=== PATIENT | female | born 1975 | race Hispanic/Latino ===

== ENCOUNTER 2025-03-29 17:13 | Emergency (ER) | payer OTHER ==
[2025-03-29 17:28] LABS: Absolute Lymphocytes (CBC) 0.7 K/uL (0.7-4.9); Hematocrit 37.4 % (36.0-45.0); Hemoglobin 13.1 g/dL (12.0-15.0); MCH 34.3 pg (27.0-35.0); MCHC 34.9 g/dL (32.0-36.0); MCV 98.1 fL (80-100); MPV 6.9 fL (7.6-11.3); Nucleated RBC Absolute Count 0.0 (0-0); Nucleated Red Blood Cells % 0.0 % (0-0); RBC Red Blood Cell Count 3.81 M/uL (3.86-4.86); White Blood Count 4.60 thou/uL (4.3-10.9)
[2025-03-29 17:49] LABS: Anion Gap 9.0 mEq/L (5.0-15.0); BUN Blood Urea Nitrogen 15.0 mg/dL (7-18); Glucose Level 104.0 mg/dL (74-106); Potassium 3.0 mEq/L (3.5-5.1); Troponin High Sensitivity 4.3 pg/mL (<58.9)
[2025-03-29] MEDS ORDERED: HYDRALAZINE HCL 20 MG/ML VIAL ONE (17:50)
[2025-03-29] MEDS ORDERED: LORazepam 2 MG/ML VIAL ONE (17:50)
[2025-03-29] MEDS ORDERED: NA CHLORIDE 0.9% 1,000 ML ONE (17:50)
--- NOTE | 2025-03-29 18:17 | RAD REPORT ---
EXAM: Chest Single View HISTORY: 49 years Female CHEST PAIN COMPARISON: 06/19/2013 FINDINGS: LUNGS/PLEURA: The lungs are clear. No pleural effusions or pneumothorax. No pulmonary edema. CARDIAC/MEDIASTINUM: The cardiac silhouette is within normal limits. UPPER ABDOMEN: No significant abnormality. BONES: No acute abnormality. LINES/TUBES/OTHER: N/A IMPRESSION: No evidence of acute cardiopulmonary disease.
--- NOTE | 2025-03-29 18:18 | EDPHYS ---
Physician Documentation [facility] Name: Lucero Galeas Age: 49 yrs Sex: Female : 1975 Arrival Date: 03/29/2025 Time: 17:13 Bed 17 Private MD: ED Physician Breezy Ibrahim HPI: 03/29 18:59 This 49 yrs old Female presents to ER via EMS with complaints of Shortness Of dr5 Breath. 18:59 Onset: The symptoms/episode began/occurred acutely. Patient is a 49-year-old female dr5 with history of hypertension coming in for feeling of bugs on her body coming out of her ears as well as chest pressure on left side. [place] when all of her symptoms started. Patient denies suicidal ideation, homicidal ideation, audio or visual hallucinations.. 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 - Infectious Disease History:: Denies. - Social history:: Smoking status: unknown. ROS: 18:59 Constitutional: as per hpi dr5 Exam: 18:59 Constitutional: This is a well developed, well nourished patient who is awake, alert, dr5 and in no acute distress. Head/Face: Normocephalic, atraumatic. Eyes: Pupils equal round and reactive to light, extra-ocular motions intact. Lids and lashes normal. Conjunctiva and sclera are non-icteric and not injected. Cornea within normal limits. Periorbital areas with no swelling, redness, or edema. ENT: Nares patent. No nasal discharge, no septal abnormalities noted. Tympanic membranes are normal and external auditory canals are clear. Oropharynx with no redness, swelling, or masses, exudates, or evidence of obstruction, uvula midline. Mucous membranes moist. Chest/axilla: Normal chest wall appearance and motion. Nontender with no deformity. No lesions are appreciated. Cardiovascular: Regular rate and rhythm with a normal S1 and S2. Normal PMI, no JVD. No pulse deficits. Respiratory: Lungs have equal breath sounds bilaterally, clear to auscultation. No rales, rhonchi or wheezes noted. No increased work of breathing, no retractions or nasal flaring. Back: No spinal tenderness. No costovertebral tenderness. Full range of motion. Skin: Warm, dry with normal turgor. Normal color with no rashes, no lesions, and no evidence of cellulitis. MS/ Extremity: Pulses equal, no cyanosis. Neurovascular intact. Full, normal range of motion. Neuro: Awake and alert, GCS 15, oriented to person, place, time, and situation. Cranial nerves II-XII grossly intact. Motor strength 5/5 in all extremities. Sensory grossly intact. Cerebellar exam normal. Normal gait. 18:59 Chest/axilla: Inspection: normal, 18:59 Skin: Patient states that she knows there are bugs in her ears. On otoscopic exam, no abnormalities noted including bugs in ears.. Vital Signs: 17:37 BP 135 / 118; Pulse 83; Resp 19; Temp 98.4; Pulse Ox 100% on R/A; iw 18:23 BP 134 / 88; Pulse 93; Resp 20; Temp 98; Pulse Ox 100% on R/A; kj2 MDM: 17:17 Medical Screening Exam initiated dr5 18:59 Differential diagnosis: Bronchitis pneumonia, Essential hypertension, NSTEMI, STEMI, dr5 delusional parasitosis. Antibiotic administration: Not indicated, the patient does not have an appreciated infiltrate. Data reviewed: vital signs, nurses notes, lab test result(s), cardiac enzymes, troponin i, CBC, white blood cell count, hemoglobin, hematocrit, platelets, electrolytes, sodium, potassium, chloride, serum bicarbonate, BUN, creatinine, serum glucose, radiologic studies, plain films. Consideration of Admission/Observation Escalation of care including admission/observation considered. Admission considered if patient found to have elevated troponin.. I considered the following discharge prescriptions or medication management in the emergency department I discussed and recommended Over The Counter medications, Medications were administered in the Emergency Department. See MAR. Independent interpretation of the following test(s) in the Emergency Department X-Ray: My interpretation is Independent interpretation of chest x-ray did not reveal infiltrates considered for pneumonia.. Historians other than the Patient: EMS: EMS. Care significantly affected by the following chronic conditions: Hypertension. Care significantly affected by the following Social Determinants of Health: Poor access to healthcare and/or lack of insurance, Poor access to transportation, Problems related to employment. Scoring Tools HEART Score: History: ECG: Age: Risk Factors: Troponin: Total Score = 2. Counseling: I had a detailed discussion with the patient and/or guardian regarding the historical points, exam findings, and any diagnostic results supporting the discharge/admit diagnosis, the presence of at least one elevated blood pressure reading (>120/80) during this emergency department visit, lab results, radiology results, the need for outpatient follow up, for definitive care, a family practitioner, to return to the emergency department if symptoms worsen or persist or if there are any questions or concerns that arise at home. Medication response: Hydralazine, Ativan. Response to treatment: the patient's symptoms have markedly improved after treatment. Special discussion: I discussed with the patient/guardian in detail that at this point there is no indication for admission to the hospital. It is understood, however, that if the symptoms persist or worsen the patient needs to return immediately for re-evaluation. Based on the history and exam findings, there is no indication for further emergent testing or inpatient evaluation. I discussed with the patient/guardian the need to see the primary care provider for further evaluation of the symptoms. ED course: Patient's white pressure has improved. Patient feels better. Will discharge patient back in custody with police. Troponin negative. Chest x-ray normal. Blood pressure has resolved. All questions answered. Strict ER precaution given.. 03/29 17:16 Order name: Basic Metabolic Panel; Complete Time: 17:53 [facility] 03/29 17:16 Order name: CBC with Diff; Complete Time: 17: dr5 03/29 17:16 Order name: Troponin HS; Complete Time: 17:53 [facility] 03/29 17:16 Order name: XRAY Chest (1 view); Complete Time: 18:17 dr5 03/29 17:16 Order name: Cardiac monitoring; Complete Time: 17: dr5 03/29 17:16 Order name: EKG - Nurse/Tech; Complete Time: 17: dr5 03/29 17:16 Order name: IV Saline Lock; Complete Time: 17: dr5 03/29 17:16 Order name: Labs collected and sent; Complete Time: 17: dr5 03/29 17:16 Order name: O2 Per Protocol; Complete Time: 17:31 dr5 03/29 17:16 Order name: O2 Sat Monitoring; Complete Time: 17: dr5 Administered Medications: 17:55 Drug: Ativan IVP 1 mg IVP once Route: IVP; Site: right antecubital; kj2 18:25 Follow up: Response: No adverse reaction kj2 17:56 Drug: hydrALAZINE IVP 5 mg IVP once Route: IVP; Site: right antecubital; kj2 18:25 Follow up: Response: No adverse reaction kj2 17:56 Drug: NS 0.9% IV 1000 ml IV at 1000 ml once; to be given as a bolus over 60 minutes kj2 Route: IV; Rate: 1000 ml; Site: right antecubital; 18:26 Follow up: IV Status: Order to discontinue infusion; IV Intake: 100ml kj2 Disposition: 18:59 Critical Care:. dr5 Disposition Summary: 03/29/25 18:18 Discharge Ordered Notes: Location: Home dr5 Condition: Stable dr5 Diagnosis - Essential (primary) hypertension dr5 Followup: dr5 - With: Emergency Department - When: As needed - Reason: Worsening of condition Followup: dr5 - With: Private Physician - When: 1 - 2 days - Reason: Recheck today's complaints, Continuance of care, Re-evaluation by your physician Discharge Instructions: - Discharge Summary Sheet dr5 - Hypertension, Adult dr5 Forms: - Medication Reconciliation Form dr5 - Patient Portal Instructions dr5 - Leadership Thank You Letter dr5 Critical care time excluding procedures: 18:59 Critical care time: Bedside Care: 25 minutes, Consultation: 5 minutes. Total time: 30 dr5 minutes Signatures: Dispatcher [employer] Adelia Johnston, RN Debora Linares RN RN kj2 Slava Givens, BAIL AGENT-C BAIL AGENT-Cdr5 Corrections: (The following items were deleted from the chart) 17:16 17:16 Chest Single View+RAD.RAD.BRZ ordered. JOAQUIN NUÑEZ
--- NOTE | 2025-03-29 18:18 | ER ---
Nurse's Notes [facility] Name: Lucero Galeas Age: 49 yrs Sex: Female : 1975 Arrival Date: 03/29/2025 Time: 17:13 Bed 17 Private MD: Diagnosis: Essential (primary) hypertension Presentation: 03/29 17:15 Chief complaint: EMS states: pt c/o SOB and parasites and bugs all over her body. iw Coronavirus screen: At this time, the client does not indicate any symptoms associated with coronavirus-19. Ebola Screen: No symptoms or risks identified at this time. Initial Sepsis Screen: Does the patient meet any 2 criteria? No. Patient's initial sepsis screen is negative. Does the patient have a suspected source of infection? No. Patient's initial sepsis screen is negative. Risk Assessment: Do you want to hurt yourself or someone else? Patient reports no desire to harm self or others. Onset of symptoms was March 29, 2025. 17:15 Method Of Arrival: EMS: [facility] 17:15 Acuity: THEODORA 3 iw Triage Assessment: 17:30 General: Appears in no apparent distress. Behavior is cooperative. Pain: Complains of kj2 pain in head Pain currently is 4 out of 10 on a pain scale. Respiratory: Reports shortness of breath on exertion Onset: The symptoms/episode began/occurred gradually. Respiratory: the patient has mild shortness of breath. 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 - Infectious Disease History:: Denies. - Social history:: Smoking status: unknown. Screenin:30 [facility] ED Fall Risk Assessment (Adult) History of falling in the last 3 months, kj2 including since admission No falls in past 3 months (0 pts) Confusion or Disorientation No (0 pts) Intoxicated or Sedated No (0 pts) Impaired Gait No (0 pts) Mobility Assist Device Used No (0 pt) Altered Elimination No (0 pt) Score/Fall Risk Level 0 - 2 = Low Risk Maintained a safe environment, Hourly rounding (assess needs \T\ fall precautionary measures) done. Abuse screen: Denies threats or abuse. Denies injuries from another. Nutritional screening: No deficits noted. Tuberculosis screening: No symptoms or risk factors identified. Assessment: 17:30 General: Appears in no apparent distress. Behavior is cooperative. Neuro: Level of kj2 Consciousness is awake, alert, obeys commands, Oriented to person, place, time, situation. Cardiovascular: Patient's skin is warm and dry. Respiratory: Airway is patent Respiratory effort is unlabored. GI: No signs and/or symptoms were reported involving the gastrointestinal system. : No signs and/or symptoms were reported regarding the genitourinary system. 18:21 Cardiovascular: Rhythm is sinus rhythm. kj2 18:21 Respiratory: Breath sounds are clear bilaterally. kj2 18:23 Reassessment: Patient appears in no apparent distress at this time. Patient and/or kj2 family updated on plan of care and expected duration. Pain level reassessed. Patient is alert, oriented x 3, equal unlabored respirations, skin warm/dry/pink. Vital Signs: 17:37 BP 135 / 118; Pulse 83; Resp 19; Temp 98.4; Pulse Ox 100% on R/A; iw 18:23 BP 134 / 88; Pulse 93; Resp 20; Temp 98; Pulse Ox 100% on R/A; kj2 ED Course: 17:13 Patient arrived in ED. af3 17:15 Slava Givens FNP-C [facility]. dr5 17:15 Breezy Ibrahim MD is Attending Physician. dr5 17:16 Triage completed. iw 17:30 Adelia Vargas, RN is Primary Nurse. iw 17:30 EKG done, by ED staff, reviewed by Slava AMADO. rk3 17:30 Arm band placed on Patient placed in the treatment room, on a stretcher. kj2 17:30 Patient has correct armband on for positive identification. Bed in low position. Call kj2 light in reach. Adult w/ patient. Provided Education on: call light. 18:12 XRAY Chest (1 view) In Process Unspecified. EDMS 18:21 No provider procedures requiring assistance completed. kj2 18:25 IV discontinued, intact, bleeding controlled, No redness/swelling at site. Pressure kj2 dressing applied. Administered Medications: 17:55 Drug: Ativan IVP 1 mg IVP once Route: IVP; Site: right antecubital; kj2 18:25 Follow up: Response: No adverse reaction kj2 17:56 Drug: hydrALAZINE IVP 5 mg IVP once Route: IVP; Site: right antecubital; kj2 18:25 Follow up: Response: No adverse reaction kj2 17:56 Drug: NS 0.9% IV 1000 ml IV at 1000 ml once; to be given as a bolus over 60 minutes kj2 Route: IV; Rate: 1000 ml; Site: right antecubital; 18:26 Follow up: IV Status: Order to discontinue infusion; IV Intake: 100ml kj2 Medication: 18:22 VIS not applicable for this client. kj2 Intake: 18:26 IV: 100ml; Total: 100ml. kj2 Outcome: 18:18 Discharge ordered by . dr5 18:24 Discharged to home ambulatory, kj2 18:24 Condition: stable 18:24 Discharge instructions given to patient, police, Instructed on discharge instructions, follow up and referral plans. Demonstrated understanding of instructions, follow-up care, 18:31 Patient left the ED. kj2 Signatures: Dispatcher [employer] Adelia Johnston RN DINESH iw Debora Edge RN RN kj2 Paola Shipman RN RN af3 Slava Givens, INDUSTRIAL PHARMACIST-C INDUSTRIAL PHARMACIST-Cdr5 Fannie Morgan3
[2025-03-29 18:40] VITALS: O2SAT 100
[2025-03-29 18:42] VITALS: BP 134/88; TEMP 98
== END 2025-03-29 18:31 | disposition home or self-care (01) ==
LOC: ER 17:13
DX: I10 Essential (primary) hypertension (principal)
CPT/HCPCS: 93005; 85025; 80048; 36415; 84484; 71045; 96375; 96374; 99284; J0360; J7030